=== PATIENT | female | born 1990 | race Caucasian/White ===

== ENCOUNTER 2019-03-01 01:51 | Emergency (ER) | payer BC ==
[2019-03-01] MEDS ORDERED: Sodium Chloride 0.9% 1000 ML 1,000 ML IV STA (02:16)
--- NOTE | 2019-03-01 02:16 | ERPHSYRPT ---
- History of Present Illness Time Seen by Provider: 03/01/19 02:15 Historian: patient Exam Limitations: no limitations Patient Subjective Stated Complaint: Flank pain Triage Nursing Assessment: Patient ambulated back to ED and transferred self to bed. Patient A+O X 3. Patient's skin pink, warm and dry. Patient complains of kareem flank pain and abdominal pain for one week. Patient states pain is constant throbbing/sharp pain 9/10. Patient states she has been having urgency, frequency and pain with urination. Abdomen soft and round with BS X 4. Physician History: Low back pain, abd pain for more than a month, got worse today. Also has dysuria. Pt refuses CT Timing/Duration: week(s) (5) Activities at Onset: other (Bathing in swimming pool) Quality: stabbing, throbbing Abdominal Pain Onset Location: generalized abdomen, flank Pain Radiation: no radiation Severity of Pain-Max: mild Severity of Pain-Current: moderate Modifying Factors: Improves With: nothing Associated Symptoms: back, nausea, No diaphoresis, No loss of appetite, No neck pain, No rash, No shortness of breath, No syncope, No vomiting, No weakness Previous symptoms: same symptoms as today Allergies/Adverse Reactions: No Known Drug Allergies Allergy (Unverified 03/01/19 02:00) Hx Influenza Vaccination/Date Given: No Hx Pneumococcal Vaccination/Date Given: No Immunizations Up to Date: Yes - Review of Systems Constitutional: No Fever, No Chills Eyes: No Symptoms Ears, Nose, & Throat: No Symptoms Respiratory: No Cough, No Dyspnea Cardiac: No Chest Pain, No Edema, No Syncope Abdominal/Gastrointestinal: No Abdominal Pain, No Nausea, No Vomiting, No Diarrhea Genitourinary Symptoms: Dysuria Musculoskeletal: No Back Pain, No Neck Pain Skin: No Rash Neurological: No Dizziness, No Focal Weakness, No Sensory Changes Psychological: No Symptoms Endocrine: No Symptoms All Other Systems: Reviewed and Negative - Past Medical History Pertinent Past Medical History: No Neurological History: No Pertinent History ENT History: No Pertinent History Cardiac History: No Pertinent History Respiratory History: No Pertinent History Endocrine Medical History: No Pertinent History Musculoskeletal History: No Pertinent History GI Medical History: No Pertinent History History: No Pertinent History Psycho-Social History: No Pertinent History Female Reproductive Disorders: Other Other Medical History: 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 - Past Surgical History Past Surgical History: Yes Neuro Surgical History: No Pertinent History Cardiac: No Pertinent History Respiratory: No Pertinent History Gastrointestinal: No Pertinent History Genitourinary: No Pertinent History Musculoskeletal: No Pertinent History Female Surgical History: Other Other Surgical History: Cone biopsy X 2 - Social History Smoking Status: Never smoker Exposure to second hand smoke: No Drug Use: none Patient Lives Alone: No - Female History Hx Last Menstrual Period: February 16, 2019 Hx Now: No - Nursing Vital Signs Nursing Vital Signs: Initial Vital Signs Pulse Rate 81 03/01/19 02:01 Respiratory Rate 18 03/01/19 02:01 Blood Pressure 135/90 03/01/19 02:01 O2 Sat by Pulse Oximetry 98 03/01/19 02:01 Pain Scale Pain Intensity 7 - Physical Exam General Appearance: no apparent distress, alert, other (Pt drove herself to er) Eye Exam: PERRL/EOMI, eyes nml inspection Ears, Nose, Throat Exam: normal ENT inspection, pharynx normal, moist mucous membranes Neck Exam: normal inspection, non-tender, supple, full range of motion Respiratory Exam: normal breath sounds, lungs clear, No respiratory distress Cardiovascular Exam: regular rate/rhythm, normal heart sounds Gastrointestinal/Abdomen Exam: soft, normal bowel sounds, No tenderness, No distention, No mass, No guarding, No hernia Pelvic Exam: deferred Back Exam: normal inspection, normal range of motion, muscle spasm, No CVA tenderness (bilat), No vertebral tenderness, No decreased range of motion Extremity Exam: normal inspection, normal range of motion, pelvis stable Neurologic Exam: alert, oriented x 3, cooperative, stone cutter II-XII nml as tested, normal mood/affect, nml cerebellar function, nml station & gait, sensation nml, No motor deficits Skin Exam: normal color, warm, dry SpO2 Interpretation: normal SpO2: 98 - Course Nursing assessment & vital signs reviewed: Yes Ordered Tests: Active Orders 24 hr Category Date Time Status IV Insertion STAT Care 03/01/19 02:16 Active CBC W DIFF Stat Lab 03/01/19 02:11 Completed CMP Stat Lab 03/01/19 02:11 Completed CULTURE,URINE Stat Lab 03/01/19 02:11 Received LIPASE Stat Lab 03/01/19 02:11 Completed UA W/RFX UR CULTURE Stat Lab 03/01/19 02:11 Completed Urine Triage Profile Stat Lab 03/01/19 02:15 Completed Medication Summary Discontinued Medications Generic Name Dose Route Start Last Admin Trade Name Rafael PRN Reason Stop Dose Admin Sodium Chloride 1,000 mls @ 999 mls/hr 03/01/19 02:16 03/01/19 03:28 Sodium Chloride 0.9% 1000 Ml IV 03/01/19 03:16 Infused .Q1H1M STA Infusion Sodium Chloride Confirm 03/01/19 02:19 Sodium Chloride 0.9% 1000 Ml Administered 03/01/19 02:20 Dose 1,000 mls @ ud .ROUTE .STK-MED ONE Ketorolac Tromethamine 15 mg 03/01/19 02:24 03/01/19 02:28 Toradol 30 Mg Injection IV 03/01/19 02:25 15 mg STAT ONE Administration Ketorolac Tromethamine Confirm 03/01/19 02:26 Toradol 30 Mg Injection Administered 03/01/19 02:27 Dose 30 mg .ROUTE .STK-MED ONE Ondansetron HCl 4 mg 03/01/19 02:24 03/01/19 02:28 Zofran 4 Mg/2 Ml Vial IV 03/01/19 02:25 4 mg STAT ONE Administration Ondansetron HCl Confirm 03/01/19 02:26 Zofran 4 Mg/2 Ml Vial Administered 03/01/19 02:27 Dose 4 mg .ROUTE .STK-MED ONE Lab/Rad Data: Laboratory Result Diagrams 03/01/19 02:11 03/01/19 02:11 Laboratory Results 03/01/19 03/01/19 03/01/19 Range/Units 02:15 02:11 02:11 WBC (4.0-10.5) K/mm3 RBC (4.1-5.4) M/mm3 Hgb (12.0-16.0) gm/dl Hct (35-47) % MCV (78-100) fl MCH (26-32) pg MCHC (32-36) g/dl RDW (11.5-14.0) % Plt Count (150-450) K/mm3 MPV (6-9.5) fl Gran % (36.0-66.0) % Eos # (Auto) (0-0.5) Absolute Lymphs (auto) (1.0-4.6) Absolute Monos (auto) (0.0-1.3) Lymphocytes % (24.0-44.0) % Monocytes % (0.0-12.0) % Eosinophils % (0.00-5.0) % Basophils % (0.0-0.4) % Absolute Granulocytes (1.4-6.9) Basophils # (0-0.4) Sodium 139 (137-145) mmol/L Potassium 3.8 (3.5-5.1) mmol/L Chloride 103 (98-107) mmol/L Carbon Dioxide 26 (22-30) mmol/L Anion Gap 14.1 (5-15) MEQ/L BUN 10 (7-17) mg/dL Creatinine 0.62 (0.52-1.04) mg/dL Estimated GFR > 60.0 ML/MIN Glucose 99 (74-106) mg/dL Calcium 9.4 (8.4-10.2) mg/dL Total Bilirubin 0.30 (0.2-1.3) mg/dL AST 22 (14-36) U/L ALT 15 (0-35) U/L Alkaline Phosphatase 96 (38-126) U/L Serum Total Protein 7.7 (6.3-8.2) g/dL Albumin 4.1 (3.5-5.0) g/dL Lipase 52 (23-300) U/L Urine Color YELLOW (YELLOW) Urine Appearance SLIGHTLY CLOUDY (CLEAR) Urine pH 5.0 (5-6) Ur Specific [place] 1.012 (1.005-1.025) Urine Protein 30 (Negative) Urine Ketones NEGATIVE (NEGATIVE) Urine Blood SMALL (0-5) Codey/ul Urine Nitrite NEGATIVE (NEGATIVE) Urine Bilirubin NEGATIVE (NEGATIVE) Urine Urobilinogen NEGATIVE (0-1) mg/dL Ur Leukocyte Esterase MODERATE (NEGATIVE) Urine WBC (Auto) >100 (0-5) /HPF Urine RBC (Auto) 11-15 (0-2) /HPF U Epithel Cells (Auto) MODERATE (FEW) /HPF Urine Bacteria (Auto) FEW (NEGATIVE) /HPF Urine Mucus (Auto) MODERATE (NEGATIVE) /HPF Urine Culture Reflexed YES (NO) Urine Glucose NEGATIVE (NEGATIVE) mg/dL Urine Opiates Level NEGATIVE (NEGATIVE) Ur Methadone NEGATIVE (NEGATIVE) Urine Barbiturates NEGATIVE (NEGATIVE) Ur Phencyclidine (PCP) NEGATIVE (NEGATIVE) Urine Amphetamine NEGATIVE (NEGATIVE) U Benzodiazepine Level NEGATIVE (NEGATIVE) Urine Cocaine NEGATIVE (NEGATIVE) Urine Marijuana (THC) NEGATIVE (NEGATIVE) 03/01/19 Range/Units 02:11 WBC 11.6 H (4.0-10.5) K/mm3 RBC 3.85 L (4.1-5.4) M/mm3 Hgb 12.3 (12.0-16.0) gm/dl Hct 37.7 (35-47) % MCV 97.9 (78-100) fl MCH 31.9 (26-32) pg MCHC 32.6 (32-36) g/dl RDW 11.6 (11.5-14.0) % Plt Count 300 (150-450) K/mm3 MPV 9.2 (6-9.5) fl Gran % 64.0 (36.0-66.0) % Eos # (Auto) 0.08 (0-0.5) Absolute Lymphs (auto) 3.36 (1.0-4.6) Absolute Monos (auto) 0.71 (0.0-1.3) Lymphocytes % 28.9 (24.0-44.0) % Monocytes % 6.1 (0.0-12.0) % Eosinophils % 0.7 (0.00-5.0) % Basophils % 0.3 (0.0-0.4) % Absolute Granulocytes 7.46 H (1.4-6.9) Basophils # 0.03 (0-0.4) Sodium (137-145) mmol/L Potassium (3.5-5.1) mmol/L Chloride (98-107) mmol/L Carbon Dioxide (22-30) mmol/L Anion Gap (5-15) MEQ/L BUN (7-17) mg/dL Creatinine (0.52-1.04) mg/dL Estimated GFR ML/MIN Glucose (74-106) mg/dL Calcium (8.4-10.2) mg/dL Total Bilirubin (0.2-1.3) mg/dL AST (14-36) U/L ALT (0-35) U/L Alkaline Phosphatase (38-126) U/L Serum Total Protein (6.3-8.2) g/dL Albumin (3.5-5.0) g/dL Lipase (23-300) U/L Urine Color (YELLOW) Urine Appearance (CLEAR) Urine pH (5-6) Ur Specific [place] (1.005-1.025) Urine Protein (Negative) Urine Ketones (NEGATIVE) Urine Blood (0-5) Codey/ul Urine Nitrite (NEGATIVE) Urine Bilirubin (NEGATIVE) Urine Urobilinogen (0-1) mg/dL Ur Leukocyte Esterase (NEGATIVE) Urine WBC (Auto) (0-5) /HPF Urine RBC (Auto) (0-2) /HPF U Epithel Cells (Auto) (FEW) /HPF Urine Bacteria (Auto) (NEGATIVE) /HPF Urine Mucus (Auto) (NEGATIVE) /HPF Urine Culture Reflexed (NO) Urine Glucose (NEGATIVE) mg/dL Urine Opiates Level (NEGATIVE) Ur Methadone (NEGATIVE) Urine Barbiturates (NEGATIVE) Ur Phencyclidine (PCP) (NEGATIVE) Urine Amphetamine (NEGATIVE) U Benzodiazepine Level (NEGATIVE) Urine Cocaine (NEGATIVE) Urine Marijuana (THC) (NEGATIVE) - Progress Progress: improved Counseled pt/family regarding: lab results, diagnosis, need for follow-up (Pt refused CT) - Departure Departure Disposition: Home Clinical Impression: UTI (urinary tract infection) Qualifiers: Urinary tract infection type: site unspecified Hematuria presence: without hematuria Qualified Code(s): N39.0 - Urinary tract infection, site not specified Low back pain Qualifiers: Chronicity: acute Back pain laterality: bilateral Sciatica presence: without sciatica Qualified Code(s): M54.5 - Low back pain Condition: Stable Critical Care Time: No Referrals: PEYTON CORTEZ NP [Primary Care Provider] - Prescriptions: Phenazopyridine HCl 200 mg [Pyridium 200 mg] 200 mg PO TID 2 Days #6 tablet Sulfamethoxazole/Trimethoprim [Bactrim Ds Tablet] 1 each PO BID 5 Days #10 tablet
[2019-03-01] MEDS ORDERED: Sodium Chloride 0.9% 1000 ML 1,000 ML ONE (02:19)
[2019-03-01 02:22] LABS: BASOPHIL % 0.3 % (0.0-0.4); Basophil (Absolute #) 0.03 (0-0.4); Eosinophil % 0.7 % (0.00-5.0); Eosinophil (Absolute #) 0.08 (0-0.5); Granulocyte Absolute (ANC) 7.46 (1.4-6.9); Hematocrit 37.7 % (35-47); Hemoglobin 12.3 gm/dl (12.0-16.0); Lymphocyte (Absolute #) 3.36 (1.0-4.6); Lymphocytes % 28.9 % (24.0-44.0); Mean Cell Volume 97.9 fl (78-100); Mean Corpuscular Hemoglobin 31.9 pg (26-32); Mean Corpuscular Hgb Concent. 32.6 g/dl (32-36); Mean Platelet Volume 9.2 fl (6-9.5); Monocyte (Absolute #) 0.71 (0.0-1.3); Monocytes % 6.1 % (0.0-12.0); Platelet Count 300 K/mm3 (150-450); Red Blood Count 3.85 M/mm3 (4.1-5.4); Red Cell Distribution Width 11.6 % (11.5-14.0); White Blood Count 11.6 K/mm3 (4.0-10.5)
[2019-03-01] MEDS ORDERED: Zofran 4 MG/2 ML VIAL IV ONE (02:24)
[2019-03-01] MEDS ORDERED: TORAdol 30 mg Injection IV ONE (02:24)
[2019-03-01] MEDS ORDERED: TORAdol 30 mg Injection ONE (02:26)
[2019-03-01] MEDS ORDERED: Zofran 4 MG/2 ML VIAL ONE (02:26)
[2019-03-01 02:28] LABS: Appearance SLIGHTLY CLOUDY (CLEAR); Bacteria FEW /HPF (NEGATIVE); Bilirubin NEGATIVE (NEGATIVE); Blood SMALL Ery/ul (0-5); Epithelial Cells MODERATE /HPF (FEW); Glucose NEGATIVE (NEGATIVE); Ketones NEGATIVE (NEGATIVE); Leukocyte Esterase MODERATE (NEGATIVE); Mucus MODERATE /HPF (NEGATIVE); Nitrite NEGATIVE (NEGATIVE); Protein,Urine Dip 30 (Negative); Specific Gravity 1.012 (1.005-1.025); Urobilinogen NEGATIVE mg/dL (0-1); WBC >100 /HPF (0-5)
[2019-03-01 02:29] LABS: ALBUMIN 4.1 g/dL (3.5-5.0); ALKALINE PHOSPHATASE 96 U/L (38-126); ANION GAP 14.1 MEQ/L (5-15); BLOOD UREA NITROGEN 10 mg/dL (7-17); CHLORIDE 103 mmol/L (98-107); Calcium 9.4 mg/dL (8.4-10.2); Carbon Dioxide 26 mmol/L (22-30); Creatinine 1 0.62 mg/dL (0.52-1.04); Glucose 99 mg/dL (74-106); LIPASE 52 U/L (23-300); Potassium 3.8 mmol/L (3.5-5.1); SGOT/AST 22 U/L (14-36); SGPT/ALT 15 U/L (0-35); SODIUM 139 mmol/L (137-145); Total Protein 7.7 g/dL (6.3-8.2)
[2019-03-01 03:00] VITALS: PULSE 65
[2019-03-01 03:21] LABS: Amphetamine,Urine NEGATIVE (NEGATIVE); Barbiturate,Urine NEGATIVE (NEGATIVE); Benzodiazepine,Urine NEGATIVE (NEGATIVE); Cocaine,Urine NEGATIVE (NEGATIVE); Methadone,Urine NEGATIVE (NEGATIVE); Opiate,Urine NEGATIVE (NEGATIVE); PCP,Urine NEGATIVE (NEGATIVE); THC,Urine NEGATIVE (NEGATIVE)
[2019-03-01 03:28] VITALS: BP 102/59
[2019-03-01] MEDS ORDERED: BACTRIM DS TABLET PO STA (03:31)
[2019-03-01] MEDS ORDERED: PYRIDIUM 200 MG PO ONE (03:34)
[2019-03-01] MEDS ORDERED: BACTRIM DS TABLET PO ONE (03:35)
[2019-03-01] MEDS ORDERED: PYRIDIUM 200 MG ONE (03:35)
[2019-03-01 03:36] VITALS: O2SAT 98
== END 2019-03-01 07:14 | disposition home or self-care (01) ==
LOC: ED 01:51
DX: N39.0 Urinary tract infection, site not specified (principal); M54.5 Low back pain
CPT/HCPCS: 36000; 36415; 80053; 80307; 81001; 83690; 85025; 87086; 96360; 96374; 96375; 99284; J1885; J2405; A9270-GY

== ENCOUNTER 2021-09-05 23:01 | Emergency (ER) | payer BC ==
[2021-09-05] MEDS ORDERED: Ativan 1 MG PO ONE (23:24)
[2021-09-05] MEDS ORDERED: BABY ASPIRIN 81 MG CHEW PO ONE ×2 (23:24)
--- NOTE | 2021-09-05 23:29 | ERPHSYRPT ---
- History of Present Illness Time Seen by Provider: 09/05/21 23:04 Historian: patient Exam Limitations: no limitations Patient Subjective Stated Complaint: Patient c/o anxiety. States that her best friend a little while back and she has been seing a grief councelor and was recently diagnosed with chronic grief. Patient has been having anxiety attacks off and on since the of her friend. This once was worse than normal and was accompanied by a sharp pain in her left lung a few hours ago. Patient worried that she had COVID a few months ago and now she is having this intermittent pain in her left lung today. NO pain at this time. Triage Nursing Assessment: Patient arrived by ambulance. She was able to transfer self from cot to bed in ED without difficulties. She is alert and oriented and answering qeustions appropriately. Patient a little tearful on arrival. No SOB noted. Physician History: 31 years old female with history of anxiety/panic attacks presented in the ER with feeling very anxious earlier at work with left-sided dull aching chest pain lasted for few minutes and improved with associated palpitations, throat closing sensation. Patient was tachypneic and later felt as if she was going to pass out. As symptoms are improved now. She does not have any chest pain potation's/shortness of breath at present. Patient reports she takes fluoxetine and woke up this morning not feeling well/very anxious. She reports having worsening anxiety symptoms since of her close friend and is doing follow- up with a counselor. According to patient usually her symptoms resolved quickly but this time it was a little longer than usual. Timing/Duration: today, hour(s) (4), gradual onset, improved Activities at Onset: activity Quality: aching Chest Pain Radiation: no radiation Severity of Pain-Max: moderate Severity of Pain-Current: none Modifying Factors: Improves With: palpation Associated Symptoms: palpitations, shortness of breath Prior Chest Pain/Cardiac Workup: no prior chest pain Nitro Today/Relief: no nitro taken today Aspirin Treatment Today: no aspirin today Allergies/Adverse Reactions: No Known Drug Allergies Allergy (Verified 09/05/21 23:06) Home Medications: Fluoxetine HCl 20 mg [Prozac 20 MG] 1 cap PO DAILY 09/05/21 [History] Norgestimate-Ethinyl Estradiol [Tri Femynor 28 Tablet] 1 tab PO DAILY 09/05/21 [History] Hx Tetanus, Diphtheria Vaccination/Date Given: Yes Hx Influenza Vaccination/Date Given: No Hx Pneumococcal Vaccination/Date Given: No Immunizations Up to Date: Yes Travel Risk - International Travel Have you traveled outside of the country in past 3 weeks: No - Coronavirus Screening Are you exhibiting any of the following symptoms?: No Close contact with a COVID-19 positive Pt in past 14-21 Days: No - Vaccine Status Have you recieved a Covid-19 vaccination: Yes Overhead Line Worker: [email or web address] - Vaccination Dates Date of 2cond Vaccination (if applicable): 03/29/2021 - Review of Systems Constitutional: Fatigue Eyes: No Symptoms Ears, Nose, & Throat: No Symptoms Respiratory: Dyspnea Cardiac: Chest Pain, Palpitations Abdominal/Gastrointestinal: No Symptoms Genitourinary Symptoms: No Symptoms Musculoskeletal: No Symptoms Skin: No Symptoms Neurological: Dizziness Psychological: Anxiety Endocrine: No Symptoms Hematologic/Lymphatic: No Symptoms Immunological/Allergic: No Symptoms - Past Medical History Pertinent Past Medical History: No Neurological History: No Pertinent History ENT History: No Pertinent History Cardiac History: No Pertinent History Respiratory History: No Pertinent History Endocrine Medical History: No Pertinent History Musculoskeletal History: No Pertinent History GI Medical History: No Pertinent History History: No Pertinent History Psycho-Social History: Anxiety Female Reproductive Disorders: Other Other Medical History: 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, CHRONIC GRIEF, ANXIETY ATTACKS - Past Surgical History Past Surgical History: Yes Neuro Surgical History: No Pertinent History Cardiac: No Pertinent History Respiratory: No Pertinent History Gastrointestinal: No Pertinent History Genitourinary: No Pertinent History Musculoskeletal: No Pertinent History Female Surgical History: Other Other Surgical History: Cone biopsy X 2 - Social History Smoking Status: Never smoker Exposure to second hand smoke: No Drug Use: none Patient Lives Alone: No - Female History Hx Last Menstrual Period: NOW Hx Now: No (UNSURE) - Nursing Vital Signs Nursing Vital Signs: Initial Vital Signs Temperature 98.1 F 09/05/21 23:08 Pulse Rate 65 09/05/21 23:08 Respiratory Rate 09/05/21 23:08 Blood Pressure 169/111 09/05/21 23:08 O2 Sat by Pulse Oximetry 99 09/05/21 23:08 Pain Scale Pain Intensity 0 - Physical Exam General Appearance: no apparent distress, alert, anxiety Eye Exam: PERRL/EOMI, eyes nml inspection Ears, Nose, Throat Exam: normal ENT inspection, TMs normal, pharynx normal Neck Exam: normal inspection, non-tender, supple, full range of motion Respiratory Exam: normal breath sounds, lungs clear Cardiovascular Exam: regular rate/rhythm, normal heart sounds Gastrointestinal/Abdomen Exam: soft, normal bowel sounds, No tenderness Back Exam: normal inspection, normal range of motion Extremity Exam: normal inspection, normal range of motion, pelvis stable Neurologic Exam: alert, oriented x 3, cooperative, conductor/engineer II-XII nml as tested, nml cerebellar function, nml station & gait, sensation nml, No normal mood/affect, No motor deficits Skin Exam: normal color SpO2 Interpretation: normal SpO2: 99 O2 Delivery: Room Air - Course EKG Interpreted by Me: RATE (51), Sinus Hoang, NORMAL AXIS, NORMAL INTERVALS, NORMAL QRS Ordered Tests: Active Orders 24 hr Category Date Time Status CHEST 1 VIEW (PORTABLE) Stat Exams 09/06/21 00:24 Taken CBC Stat Lab 09/05/21 23:41 Completed CMP Stat Lab 09/05/21 23:41 Completed D-DIMER QUANTITATIVE Stat Lab 09/05/21 23:41 Completed HCG QUALITATIVE,SERUM Stat Lab 09/05/21 23:41 Completed TROPONIN Q3H Lab 09/05/21 23:30 Ordered TROPONIN Q3H Lab 09/06/21 02:30 Ordered Medication Summary Discontinued Medications Generic Name Dose Route Start Last Admin Trade Name Rafael PRN Reason Stop Dose Admin Aspirin 324 mg 09/05/21 23:24 09/05/21 23:30 Aspirin 81 Mg Tab.Chew PO 09/05/21 23:25 324 mg STAT ONE Administration Aspirin 324 mg 09/05/21 23:24 09/05/21 23:30 Aspirin 81 Mg Tab.Chew PO 09/05/21 23:25 Not Given STAT ONE Lorazepam 1 mg 09/05/21 23:24 09/05/21 23:32 Lorazepam 1 Mg Tablet PO 09/05/21 23:25 1 mg STAT ONE Administration Lorazepam Confirm 09/05/21 23:31 Lorazepam 1 Mg Tablet Administered 09/05/21 23:32 Dose 1 mg .ROUTE .STK-MED ONE Lab/Rad Data: Laboratory Result Diagrams 09/05/21 23:41 09/05/21 23:41 Laboratory Results 09/05/21 09/05/21 09/05/21 Range/Units 23:41 23:41 23:41 WBC (4.0-10.5) K/mm3 RBC (4.1-5.4) M/mm3 Hgb (12.0-16.0) gm/dl Hct (35-47) % MCV (78-100) fl MCH (26-32) pg MCHC (32-36) g/dl RDW (11.5-14.0) % Plt Count (150-450) K/mm3 MPV (7.5-11.0) fl D-Dimer 482 (215-500) ng/mL Sodium 135 L (137-145) mmol/L Potassium 4.0 (3.5-5.1) mmol/L Chloride 103 (98-107) mmol/L Carbon Dioxide 24 (22-30) mmol/L Anion Gap 12.5 (5-15) MEQ/L BUN 15 (7-17) mg/dL Creatinine 0.73 (0.52-1.04) mg/dL Estimated GFR > 60.0 ML/MIN Glucose 93 (74-106) mg/dL Calcium 8.8 (8.4-10.2) mg/dL Total Bilirubin 0.30 (0.2-1.3) mg/dL AST 22 (14-36) U/L ALT 12 (0-35) U/L Alkaline Phosphatase 71 (38-126) U/L Serum Total Protein 7.4 (6.3-8.2) g/dL Albumin 4.1 (3.5-5.0) g/dL Serum , Qual NEGATIVE (Negative) 09/05/21 Range/Units 23:41 WBC 10.7 H (4.0-10.5) K/mm3 RBC 4.17 (4.1-5.4) M/mm3 Hgb 12.8 (12.0-16.0) gm/dl Hct 40.0 (35-47) % MCV 95.9 (78-100) fl MCH 30.7 (26-32) pg MCHC 32.0 (32-36) g/dl RDW 13.2 (11.5-14.0) % Plt Count 347 (150-450) K/mm3 MPV 9.5 (7.5-11.0) fl D-Dimer (215-500) ng/mL Sodium (137-145) mmol/L Potassium (3.5-5.1) mmol/L Chloride (98-107) mmol/L Carbon Dioxide (22-30) mmol/L Anion Gap (5-15) MEQ/L BUN (7-17) mg/dL Creatinine (0.52-1.04) mg/dL Estimated GFR ML/MIN Glucose (74-106) mg/dL Calcium (8.4-10.2) mg/dL Total Bilirubin (0.2-1.3) mg/dL AST (14-36) U/L ALT (0-35) U/L Alkaline Phosphatase (38-126) U/L Serum Total Protein (6.3-8.2) g/dL Albumin (3.5-5.0) g/dL Serum , Qual (Negative) - Progress Progress: improved Air Movement: good Progress Note: 09/06/21 31 years old is evaluated for chest pain with anxiety symptoms. Patient is asymptomatic currently. EKG showed sinus bradycardia without any ST elevation and negative troponin/D-dimers. Chest x-ray no acute finding reviewed by me, official report is pending. Patient is given Ativan, on reevaluation she is feeling much better. Low risk for CAD, low heart score. Do not think patient needs second troponin and recommended outpatient follow-up. Discussed signs symptoms of worsening needing return to ER which he seems understanding. Blood Culture(s) Obtained: No Antibiotics given: No Counseled pt/family regarding: lab results, diagnosis, need for follow-up, rad results - Departure Departure Disposition: Home Clinical Impression: Panic attack Condition: Stable Critical Care Time: No Referrals: PEYTON CORTEZ NP [Primary Care Provider] - Follow up/PCP as directed (1-2 days for reevaluation) Instructions: Anxiety, Adult (DC) Additional Instructions: Continue with your anxiety medication. Follow-up with primary care and your counselor. Return to ER if again having chest pain palpitations or shortness of breath.
[2021-09-05] MEDS ORDERED: Ativan 1 MG ONE (23:31)
[2021-09-05 23:45] LABS: Hemoglobin 12.8 gm/dl (12.0-16.0); Mean Cell Volume 95.9 fl (78-100); Mean Corpuscular Hemoglobin 30.7 pg (26-32); Mean Platelet Volume 9.5 fl (7.5-11.0); Platelet Count 347 K/mm3 (150-450); Red Blood Count 4.17 M/mm3 (4.1-5.4); Red Cell Distribution Width 13.2 % (11.5-14.0); White Blood Count 10.7 K/mm3 (4.0-10.5)
[2021-09-05 23:55] LABS: ALBUMIN 4.1 g/dL (3.5-5.0); ALKALINE PHOSPHATASE 71 U/L (38-126); ANION GAP 12.5 MEQ/L (5-15); BLOOD UREA NITROGEN 15 mg/dL (7-17); CHLORIDE 103 mmol/L (98-107); Calcium 8.8 mg/dL (8.4-10.2); Carbon Dioxide 24 mmol/L (22-30); Creatinine 1 0.73 mg/dL (0.52-1.04); EST GLOMERULAR FILTRATION RATE > 60.0 ML/MIN; Glucose 93 mg/dL (74-106); SGOT/AST 22 U/L (14-36); SGPT/ALT 12 U/L (0-35); SODIUM 135 mmol/L (137-145); Total Protein 7.4 g/dL (6.3-8.2)
[2021-09-06 01:18] VITALS: BP 150/77; PULSE 67; O2SAT 97
--- NOTE | 2021-09-06 08:54 | XRAY ---
Indication: Chest pain and anxiety. Recent Covid 19. Comparison: None Portable chest demonstrates normal heart, lungs, and bony thorax.
== END 2021-09-06 01:25 | disposition home or self-care (01) ==
LOC: ED 23:01
DX: F41.0 Panic disorder [episodic paroxysmal anxiety] (principal); R07.9 Chest pain, unspecified; R00.2 Palpitations; R06.02 Shortness of breath; F43.29 Adjustment disorder with other symptoms; Z79.899 Other long term (current) drug therapy
CPT/HCPCS: 36415; 71045; 80053; 81025; 84484; 85027; 85379; 99284; A9270-GY